=== PATIENT | female | born 1995 | race Two or more races ===

== ENCOUNTER 2023-03-30 14:24 | Emergency (ER) | payer BC ==
[~2023-03-30] VITALS: Ht 160 cm; Wt 57.0 kg
[2023-03-30 14:26] VITALS: BP 128/86; O2SAT 100
[2023-03-30 18:52] VITALS: PULSE 92; RESP 16; TEMP 98.8
== END 2023-03-30 18:52 | disposition home or self-care (01) ==
LOC: ER 14:24
DX: S20.219A Contusion of unspecified front wall of thorax, initial encounter (principal); V49.9XXA Car occupant (driver) (passenger) injured in unspecified traffic accident, initial encounter; Y93.89 Activity, other specified; Y92.89 Other specified places as the place of occurrence of the external cause; Y99.8 Other external cause status
CPT/HCPCS: 71046; 93005; 99283